=== PATIENT | female | born 1995 | race Caucasian/White ===

== ENCOUNTER 2024-07-30 13:06 | Observation (INO) | payer SELFPAY ==
--- NOTE | ~2024-07-30 | XR_ITS ---
EXAMINATION: XR chest 1V portable DATE: 07/30/2024 14:23 INDICATION: Tachycardia. TECHNIQUE: A single frontal view of the chest was obtained on 2 radiographs. COMPARISON: None. FINDINGS: There is no pneumonia, pleural effusion, or pneumothorax. The heart size is normal. IMPRESSION: 1. No acute cardiopulmonary disease. Reviewed, dictated and finalized at location A.
--- NOTE | 2024-07-30 13:31 | ECG_ITS ---
Test Date: 2024-07-30 13:40:05 Measurements Intervals [place] Rate: 103 P: 78 MA: 140 QRS: 63 QRSD: 85 T: 72 QT: 330 QTc: 433 Interpretive Statements SINUS TACHYCARDIA OTHERWISE NORMAL ELECTROCARDIOGRAM No previous ECG available for comparison Electronically Signed On 07-30-2024 16:12:39 CDT by Dexter Moncada M.D.
[2024-07-30 13:47] VITALS: BP 140/93; PULSE 94; RESP 16; TEMP 36.8; O2SAT 99
[2024-07-30] MEDS: LORazepam (*CRX) 0.5 MG TABLET PO (14:07)
--- NOTE | 2024-07-30 14:07 | PC.NURSE ---
Spoke with poison control. She states serotonin syndrome is diagnosed using the jericho criteria. Treated with benzos. will fax over information
[2024-07-30 14:19] LABS: Basophils Percent Auto 0.5 % (0.2-1.2); Eosinophils Percent Auto 0.3 % (0-4.4); Hematocrit 42.6 % (37.0-47.0); Hemoglobin 14.5 g/dL (12.0-15.0); Immature Granulocyte Absolute 0.02 K/mm3 (0.00-0.031); Immature Granulocyte Percent A 0.3 % (0-0.5); Lymphocytes Absolute Auto 1.41 K/mm3 (0.9-3.2); Lymphocytes Percent Auto 18.7 % (18.3-44.2); Mean Corpuscular Hemoglobin 29.2 pg (26-34); Mean Corpuscular Volume 85.7 fl (80-100); Mean Platelet Volume 11.2 fl (7.4-10.4); Monocytes Absolute Auto 0.3 K/mm3 (0.1-0.6); Monocytes Percent Auto 4.2 % (2.6-8.5); Neutrophils Absolute Auto 5.7 K/mm3 (1.3-6.7); Platelet Count Result 255 k/mm3 (150-375); Red Blood Count 4.97 M/mm3 (4.2-5.4); Red Cell Distribution Width 12.4 % (11.5-14.5); White Blood Count 7.6 K/mm3 (4.5-10.0)
[2024-07-30 14:20] LABS: Add Urine Microscopic? NO; Appearance Urine Clear (Clear); Bilirubin Urine Negative (Negative); Blood Urine Negative (Negative); Color Urine Yellow (Yellow); Glucose Urine UA Negative (Negative); Ketones Urine Negative (Negative); Leukocyte Esterase Ur Negative LEU/UL (Negative); Nitrate Urine Negative (Negative); Protein Urine Negative (Negative); Specific Grav Ur 1.008 (1.001-1.035); Urobilinogen Urine 0.2 mg/dL (<2.0); pH Urine 6.5 (5.0-9.0)
[2024-07-30 14:31] LABS: Alanine Aminotransferase 18 U/L (6-35); Albumin Level 4.9 g/dL (3.5-5.1); Alkaline Phosphatase 62 U/L (38-126); Anion Gap 11 mmol/L (4-12); Aspartate Amino Transferase 24 U/L (14-36); Bilirubin,Total 0.6 mg/dL (0.2-1.3); Blood Urea Nitrogen 10 mg/dL (7-17); Calcium 8.9 mg/dL (8.4-10.2); Carbon Dioxide 25 mmol/L (22-30); Chloride 101 mmol/L (98-107); Creatine Kinase 57 U/L (30-135); Estimated CRCL calculation 111 ml/min; Estimated Glomerular Filt Rate > 60; Glucose 98 mg/dL (65-110); Potassium 3.7 mmol/L (3.4-5.0); Sodium 137 mmol/L (137-145)
[2024-07-30 14:50] LABS: Amphetamine Screen Urine Negative (Negative); Barbiturate Screen Urine Negative (Negative); Benzodiazepines Screen Urine Negative (Negative); Cannabinoid Screen Urine Negative (Negative); Cocaine Screen Urine Negative (Negative); Methadone Screen Urine Negative (Negative); Opiate Screen Urine Negative (Negative); Phencyclidine Screen Urine Negative (Negative)
--- NOTE | 2024-07-30 15:07 | ED.SYNCOPE ---
HPI - Syncope General Chief Complaint: Dizziness Stated Complaint: concern for serotonin syndrome Time Seen by Provider: 07/30/24 13:21 Source: patient Mode of arrival: ambulatory Limitations: no limitations History of Present Illness HPI narrative: this is a 28-year-old female, with history depression, who presents emergency department complaining of dizziness, shakiness, diarrhea with concern for serotonin syndrome. The patient states she had previously weaned herself off of Effexor stopping 5 days ago. She felt side effects stopping medication and restarted at 37.5 mg once a day ( extended dose) 2 days ago with her last doses part. Since restarting the medications, she has felt the symptoms above. she denies any other medications or supplements. She denies loss of consciousness, chest pain, shortness of breath or seizures. She has other complaints this time. Related Data Home Medications Medication Instructions Recorded Confirmed acetaminophen 325 mg tablet 650 mg PO PRN PRN pain or fever 07/30/24 07/30/24 (Tylenol) venlafaxine 37.5 mg tablet 37.5 mg PO DAILY 07/30/24 07/30/24 Allergies Allergy/AdvReac Type Severity Reaction Status Date / Time No Known Allergies Allergy Verified 07/30/24 13:08 Review of Systems Review of Systems: All systems reviewed & are unremarkable except as noted in HPI and below PMFSH Family History Family History (Updated 07/30/24 @ 21:55 by Elva Morrow RN) Sibling Ovarian cancer Other Ovarian cancer Mother Heart problem Rheumatoid arthritis Social History Social History (Updated 07/30/24 @ 21:57 by Elva Morrow RN) Years smoked: 5 Smoking status: Current every day smoker Tobacco type: e-cigarettes/vaping Alcohol intake: current Drinks per week: 2 Substance use: never Do You Feel Safe in your Home?: Yes Lack of Transportation: No Lack of Food: Never True Current Housing: I Have Housing Concerned About Future Housing: No Difficulty Paying Gas/Electric Bills: No Difficulty Paying for Meds: No Currently Unemployed: No Education: Decline to Answer Difficulty w/ Childcare or Family Care: No Living arrangements: with family Occupation/Education: occupation Gender identity (if verbalized by the patient): Female Spiritual care concerns: No Agree to blood products: Yes Exam Narrative: GENERAL: Well-developed, well-nourished, and in no acute distress. HEAD: Normocephalic, atraumatic. EYES: PERRLA and EOMI. ENT: Nares clear, no rhinorrhea or epistaxis. Mucous membranes moist. Oropharynx without tonsillar hypertrophy exudate or other lesions. Bilateral TMs pearly howell nonbulging NECK: Supple. No adenopathy or masses. No carotid bruits or JVD CHEST: Clear to auscultation. No respiratory distress. No wheezes rales or rhonchi HEART: Regular rate and rhythm. No murmur heard. Normal peripheral pulses. ABDOMEN: Soft, nontender, nondistended, normal active bowel sounds. EXTREMITIES: Normal range of motion. No edema. SKIN: Warm, dry, no rash. NEURO: Alert and oriented x3. No focal deficit. Moving all 4 limbs spontaneously. Clonus elicited in the bilateral lower extremities reflexes 3+ in all extremities PSYCH: Normal mood and affect. Course Course Emergency Course: 15:00 - EKG not concerning for arrhythmia. QRS within normal limits. Chemistries unremarkable. CBC within normal limits. chest x-ray not concerning for infiltration. UA negative for urinary tract infection. Drug screen negative. I suspect serotonin syndrome. Poison Control was contacted and agrees they recommend benzodiazepines and observation. 15:30 - I discussed the patient with hospitalist, JIMY Muniz who discussed the patient with attending, Dr. Davis. Observation in the emergency department recommended. 18:38 - The patient states she feels worsened. On re-evaluation, I am unable to elicit clonus. JIMY Muniz also at bedside. 19:00 - JIMY Arce
[2024-07-30] MEDS: LACTATED RINGERS 1,000 ML 999 ML IV CONT (15:12)
[2024-07-30 16:14] LABS: Thyroid Stimulating Hormone 0.736 uIU/mL (0.465-4.680)
[2024-07-30 16:31] VITALS: BP 119/93; PULSE 97; RESP 18; O2SAT 100
[2024-07-30 16:59] VITALS: PULSE 104
--- NOTE | 2024-07-30 19:02 | PM.IMHP ---
H&P: HPI History of Present Illness Date/Time: 07/30/24 19:30 Chief Complaint: Suspected serotonin syndrome. 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 The patient provides the following history. She has been on venlafaxine for many years for her anxiety and has tried to come off of the previously though was unable to tolerate the side effects. Recently she has weaned herself off of the drug under the supervision of her primary care provider though it has been a struggle for her. After being off of the medication for 5 days she began having withdrawal symptoms including brain zaps, nausea, and irritability. She spoke with her primary care provider who told her to start back on the medication and she started that yesterday at 37.5 mg. She is currently in town for a work comp friends and today she was just not feeling like herself. She feels dizzy, shaky, and agitated. She also complains of a diffuse frontal headache, nausea, and loose stools. She had serotonin syndrome last year with a similar presentation and the symptoms are the same. She denies fever, sweats, tremors, stiff muscles, racing heart, and vomiting. She also denies taking a dose higher than what is prescribed. No sick contacts. She is on no other medications at home. In the ED: She was afebrile on arrival with a blood pressure of 140/93. Heart rate has been consistently in the low 90s. CMP, CBC, and UA were unremarkable. Urine drug screen was negative. Chest x-ray showed no acute cardiopulmonary disease. EKG showed sinus tachycardia. On ED physician exam the patient had inducible clonus of the ankles. ED physician spoke with Poison Control and they recommend benzodiazepines if needed and holding the offending agent. The patient was observed for 6 hours and continued to have the above symptoms and she is being admitted overnight for close monitoring. Review of Systems Review of Systems: 12 systems were reviewed and are negative except for as per HPI. [facility] Past Medical History Medical History (Updated 07/30/24 @ 23:13 by Jane Muniz PA-C) Anxiety Serotonin syndrome Family History Family History Sibling Ovarian cancer Other Ovarian cancer Mother Heart problem Rheumatoid arthritis Social History Social History (Updated 07/30/24 @ 23:14 by Jaen Muniz PA-C) Social History: Surrogate medical decision maker: Carlos Roca, spouse. Code status: Full code. Years smoked: 5 Smoking status: Current every day smoker Tobacco type: e-cigarettes/vaping Alcohol intake: current Drinks per week: 2 Substance use: never Do You Feel Safe in your Home?: Yes Lack of Transportation: No Lack of Food: Never True Current Housing: I Have Housing Concerned About Future Housing: No Difficulty Paying Gas/Electric Bills: No Difficulty Paying for Meds: No Currently Unemployed: No Education: Decline to Answer Difficulty w/ Childcare or Family Care: No Living arrangements: with family Additional living arrangements comments: The patient lives with her spouse and 2 young children in [place]. Spiritual care concerns: No Agree to blood products: Yes Meds Home Medications and Allergies Home Medications Medication Instructions Recorded Confirmed Type acetaminophen 325 mg tablet 650 mg PO PRN PRN pain or fever 07/30/24 07/30/24 History (Tylenol) venlafaxine 37.5 mg tablet 37.5 mg PO DAILY 07/30/24 07/30/24 History Allergies Allergy/AdvReac Type Severity Reaction Status Date / Time No Known Allergies Allergy Verified 07/30/24 13:08 Vital Signs Vital Signs - 24 hr 07/30/24 13:47 07/30/24 16:31 07/30/24 16:59 Temperature 98.2 F P
[2024-07-30] MEDS: LORazepam INJ (*CRX) 2 MG/ML VIAL 0.5 MG IV PUSH (19:13)
[2024-07-30] MEDS: KETOROLAC 15 MG/ML VIAL (*BKC) IV PUSH (19:13)
[2024-07-30 20:28] VITALS: PULSE 98; RESP 17; O2SAT 100
[2024-07-30 20:57] VITALS: BP 113/79; PULSE 90; RESP 15; O2SAT 99
--- NOTE | 2024-07-30 21:19 | ADMGEN ---
This patient, Liya Roca, was admitted to Medical Room 345-01. Patient/family oriented to hospital policies and general routines including ID bracelet, bed and alarms, visiting hours, pain management, procedures, bathroom and other care routines, personal items, smoking policy, room service/diet, and visiting hours. Information on how to activate the Rapid Response Team has been discussed. Patient/Family are encouraged to report perceived risks to care and to ask questions if they do not understand what they are told or what they should do.
[2024-07-30 21:28] VITALS: BP 128/80; PULSE 90; RESP 20; TEMP 36.8; O2SAT 99
[2024-07-30 21:29] VITALS: BMI 25.8
[2024-07-31] VITALS: PULSE 75
--- NOTE | 2024-07-31 02:02 | PC.NURSE ---
[facility] UPDATED ON PATIENT STATUS AT THIS TIME. VS, CURRENT MEDICATIONS, AND PHYSICAL ASSESSMENT ALL REVIEWED WITH REP. PATIENT CURRENTLY RESTING WITH NO SIGNS OF DISTRESS.
[2024-07-31 04:00] VITALS: PULSE 68
[2024-07-31 05:20] LABS: Basophils Percent Auto 0.6 % (0.2-1.2); Eosinophils Absolute Auto 0.1 K/mm3 (0-0.3); Eosinophils Percent Auto 1.4 % (0-4.4); Hematocrit 39.3 % (37.0-47.0); Immature Granulocyte Absolute 0.01 K/mm3 (0.00-0.031); Immature Granulocyte Percent A 0.2 % (0-0.5); Lymphocytes Percent Auto 34.4 % (18.3-44.2); Mean Corpuscular HGB Conc 33.1 g/dl (32-36); Mean Corpuscular Hemoglobin 29.1 pg (26-34); Mean Corpuscular Volume 88.1 fl (80-100); Mean Platelet Volume 10.9 fl (7.4-10.4); Monocytes Absolute Auto 0.6 K/mm3 (0.1-0.6); Monocytes Percent Auto 9.5 % (2.6-8.5); Neutrophils Absolute Auto 3.4 K/mm3 (1.3-6.7); Neutrophils Percent Auto 53.9 % (45.5-73.1); Platelet Count Result 217 k/mm3 (150-375); Red Blood Count 4.46 M/mm3 (4.2-5.4); Red Cell Distribution Width 12.3 % (11.5-14.5); White Blood Count 6.4 K/mm3 (4.5-10.0)
[2024-07-31 05:28] LABS: Anion Gap 7 mmol/L (4-12); Blood Urea Nitrogen 11 mg/dL (7-17); Calcium 8.8 mg/dL (8.4-10.2); Carbon Dioxide 28 mmol/L (22-30); Chloride 104 mmol/L (98-107); Estimated CRCL calculation 97 ml/min; Estimated Glomerular Filt Rate > 60; Glucose 87 mg/dL (65-110); Potassium 3.6 mmol/L (3.4-5.0); Sodium 139 mmol/L (137-145)
[2024-07-31 05:34] VITALS: BP 106/65; PULSE 58; RESP 20; TEMP 36.7; O2SAT 100
[2024-07-31 06:14] LABS: Magnesium 2.1 mg/dL (1.6-2.3)
[2024-07-31 08:00] VITALS: PULSE 71
[2024-07-31 12:00] VITALS: PULSE 86
[2024-07-31 14:00] VITALS: BP 118/68; PULSE 89; RESP 16; TEMP 36.4; O2SAT 99
--- NOTE | 2024-07-31 15:09 | PM.DS ---
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 The patient provides the following history. She has been on venlafaxine for many years for her anxiety and has tried to come off of the previously though was unable to tolerate the side effects. Recently she has weaned herself off of the drug under the supervision of her primary care provider though it has been a struggle for her. After being off of the medication for 5 days she began having withdrawal symptoms including brain zaps, nausea, and irritability. She spoke with her primary care provider who told her to start back on the medication and she started that yesterday at 37.5 mg. She is currently in town for a work comp friends and today she was just not feeling like herself. She feels dizzy, shaky, and agitated. She also complains of a diffuse frontal headache, nausea, and loose stools. She had serotonin syndrome last year with a similar presentation and the symptoms are the same. She denies fever, sweats, tremors, stiff muscles, racing heart, and vomiting. She also denies taking a dose higher than what is prescribed. No sick contacts. She is on no other medications at home. In the ED: She was afebrile on arrival with a blood pressure of 140/93. Heart rate has been consistently in the low 90s. CMP, CBC, and UA were unremarkable. Urine drug screen was negative. Chest x-ray showed no acute cardiopulmonary disease. EKG showed sinus tachycardia. On ED physician exam the patient had inducible clonus of the ankles. ED physician spoke with Poison Control and they recommend benzodiazepines if needed and holding the offending agent. The patient was observed for 6 hours and continued to have the above symptoms and she is being admitted overnight for close monitoring. 07/31/2024: Today during the evaluation patient denies any tachycardia, diaphoresis, confusion fever except for brain fogginess. No evidence of myoclonus. Called poison Control and updated the case and recommended no further recommendation. Advised the patient to seek ER upon discharge if any symptoms recurs. Also we advised to seek psychiatrist with in a day of discharge in regards to continuation of Venlafaxine. Patient reports whenever they taper the dose of Venlafaxine she can experience flu like symptoms. Also when she is back on venlafaxine she experience serotonin syndrome like symptoms myoclonus . Patient denies any other medication and taking extra doses of venlafaxine. As mentioned above we waited the discussion of psychiatrist to continue the venlafaxine or change to any other medications long acting like Prozac. Status at Discharge Cognitive/behavioral status at discharge: Stable Time Spent with Patient Time attestation: Total time spent providing and/or coordinating discharge services: 45 minute Exam Narrative: General: Well-developed, nontoxic-appearing female supine in bed. Weight: 72.6 kg. BMI: 25.8. HEENT: PERRL, EOMI. Sclera anicteric. Tacky mucous membranes. Neck: Supple. Respiratory: Lungs are clear to auscultation bilaterally. Cardiovascular: Tachycardic with normal S1-S2 Gastrointestinal: Abdomen is soft, nontender, and nondistended with positive bowel sounds. Skin: Warm and dry. Extremities: No cyanosis, clubbing, or edema. Radial and pedal pulses intact. Neurological: Alert. Cranial nerves 2-12 are grossly intact. No clonus or tremors. Psychiatric: Pl
== END 2024-07-31 15:11 | disposition home or self-care (01) ==
LOC: ANHED 14:08 → ANH3MED 20:34
PROVIDERS: Physician Assistant; Admitting Provider General Practice; Emergency Provider Preventive Medicine Aerospace Medicine; Visit Provider General Practice
DX: G90.81 Serotonin syndrome (principal); R00.0 Tachycardia, unspecified; T43.215A Adverse effect of selective serotonin and norepinephrine reuptake inhibitors, initial encounter; F41.9 Anxiety disorder, unspecified; F17.290 Nicotine dependence, other tobacco product, uncomplicated; Z79.899 Other long term (current) drug therapy
CPT/HCPCS: 36415; 71045; 80048; 80053; 80307; 81003; 82550; 83735; 84443; 85025; 93005; 96361; 96374; 96375; 99285; A9270; G0378; J1885; J2060; J7120